=== PATIENT | female | born 1975 | race Caucasian/White ===

== ENCOUNTER 2018-04-08 11:14 | Emergency (ER) | payer BC ==
[2018-04-08 11:14] VITALS: BMI 23.8
[2018-04-08] MEDS ORDERED: Sodium Chloride 0.9% 1,000 ML IV STA (11:43)
[2018-04-08 12:22] LABS: BASO # 0.02 K/mm3 (0.0-2.0); BASO % 0.2 % (0.0-3.0); EOS % 0.5 % (1.5-5.0); GRAN # 5.54 (1.4-6.5); GRAN % 65.8 % (50.0-68.0); HEMOGLOBIN 12.8 g/dL (12.0-16.0); LYMPH # 2.2 (1.2-3.4); LYMPH % 26.4 % (22.0-35.0); MEAN CELL VOLUME 89.3 fl (80.0-105.0); MEAN CORPUSCULAR HEMOGLOBIN 29.8 pg (25.0-35.0); MEAN CORPUSCULAR HGB CONC 33.4 g/dl (31.0-37.0); MEAN PLATELET VOLUME 11.6 fl (7.0-11.0); MONO # 0.6 (0.1-0.6); MONO % 7.1 % (1.0-6.0); RBC 4.29 10^6/uL (3.5-6.1); WHITE BLOOD COUNT 8.4 10^3/ul (4.5-11.0)
[2018-04-08 12:30] LABS: PH,URINE 7.5 (4.7-8.0); URINE BILIRUBIN NEGATIVE (NEGATIVE); URINE BLOOD LARGE (NEGATIVE); URINE GLUCOSE (UA) NEGATIVE (NEGATIVE); URINE LEUKOCYTE ESTERASE TRACE Leu/uL (NEGATIVE); URINE PROTEIN 100 mg/dL (<30 mg/dL)
[2018-04-08 12:34] LABS: HCG,QUALITATIVE URINE NEGATIVE (NEGATIVE); INR 1.01 (0.93-1.08); PROTHROMBIN TIME 11.6 SECONDS (9.4-12.5); URINE APPEARANCE BLOODY (CLEAR); URINE COLOR DARK RED (YELLOW)
[2018-04-08 12:35] LABS: ALB/GLOB RATIO 1.5 (1.1-1.8); ALBUMIN 4.3 g/dL (3.0-4.8); ALT/SGPT 27 U/L (7-56); AST/SGOT 21 U/L (14-36); BLOOD UREA NITROGEN 13 mg/dL (7-21); CALCIUM 9.4 mg/dL (8.4-10.5); GFR AFRICAN-AMERICAN > 60; GFR NON-AFRICAN AMERICAN > 60; PARTIAL THROMBOPLASTIN TIME 19.6 Seconds (25.1-36.5)
[2018-04-08 12:36] LABS: URINE BACTERIA MANY (NEG); URINE RBC TNTC /hpf (0-2)
--- NOTE | 2018-04-08 13:16 | ED PDOC ---
Arrival/HPI - General Chief Complaint: Female Genitourinary Time Seen by Provider: 04/08/18 11:42 Historian: Patient - History of Present Illness Narrative History of Present Illness (Text): 04/08/18 11:42 42 year old female, with past medical history of fibriods and ovarian cysts, presents to the Emergency department complaining of continuous vaginal bleeding since 3 weeks. Patient informs her menstrual cycle began early March when she was going through approximately 3 pads per day. However, bleeding continued and progressively became heavier where now she approximately uses 5 pads overnight. Patient informs lower abdominal cramping and generalized fatigue. Patient denies or abnormal vaginal bleeding in the past. Patient denies any fever, chills, nausea, vomiting, diarrhea, chest pain, shortness of breath or any other complaints. Patient presents to the Emergency department for medical evaluation. Time/Duration: > week (3 weeks) Symptom Onset: Gradual Symptom Course: Unchanged Quality: Cramping Activities at Onset: Light Context: Home Past Medical History - Provider Review Nursing Documentation Reviewed: Yes - Travel History Have you recently traveled outside [place] w/in the past 3 mons?: No - Infectious Disease Hx of Infectious Diseases: None - Tetanus Immunization Tetanus Immunization: Up to Date - Past Medical History Past Medical History: No Previous - Gastrointestinal Hx Gastritis: Yes - Psychiatric Hx Depression: No Hx Emotional Abuse: No Hx Physical Abuse: No Hx Substance Use: No - Surgical History Hx Section: Yes (x2) Hx Dilation and Curettage: Yes - Anesthesia Hx Anesthesia: Yes Hx Anesthesia Reactions: No Hx Malignant Hyperthermia: No - Suicidal Assessment Feels Threatened In Home Enviroment: No Family/Social History - Physician Review Nursing Documentation Reviewed: Yes Family/Social History: No Known Family HX Smoking Status: Never Smoked Hx Alcohol Use: No Hx Substance Use: No Hx Substance Use Treatment: No Allergies/Home Meds Allergies/Adverse Reactions: Allergies No Known Allergies Allergy (Verified 07/14/15 08:59) Home Medications: Home Meds Medication Instructions Recorded Confirmed No Known Home Med 04/08/18 04/08/18 Review of Systems - Physician Review All systems were reviewed & negative as marked: Yes - Review of Systems Constitutional: Fatigue. absent: Fevers Respiratory: Normal. absent: SOB, Cough Cardiovascular: Normal. absent: Chest Pain, Palpitations, Syncope Gastrointestinal: Abdominal Pain (lower abdominal cramping). absent: Constipation, Diarrhea, Nausea, Vomiting, Appetite Changes Genitourinary Female: Vaginal Bleeding. absent: Dysuria, Frequency, Hematuria Musculoskeletal: Normal. absent: Arthralgias, Back Pain, Neck Pain Skin: absent: Rash, Pruritis Neurological: absent: Headache, Dizziness Psychiatric: absent: Anxiety, Depression Physical Exam Vital Signs Reviewed: Yes Vital Signs Temp Pulse Resp BP Pulse Ox 04/08/18 15:28 98.0 F 69 19 99 04/08/18 14:43 98.0 F 67 20 114/70 100 04/08/18 11:40 98.2 F 84 18 118/84 97 Temperature: Afebrile Blood Pressure: Normal Pulse: Regular Respiratory Rate: Normal Appearance: Positive for: Well-Appearing, Non-Toxic, Comfortable Pain Distress: None Mental Status: Positive for: Alert and Oriented X 3 - Systems Exam Head: Present: Atraumatic Conjunctiva: Present: Normal Mouth: Present: Moist Mucous Membranes Respiratory/Chest: Present: Clear to Auscultation, Good Air Exchange. No: Respiratory Distress, Accessory Muscle Use, Wheezes, Rhonchi, Tachypneic Cardiovascular: Present: Regular Rate and Rhythm, Normal S1, S2. No: Murmurs Abdomen: Present: Tenderness (minimal lower abdominal tenderness). No: Distention, Peritoneal Signs, Rebound, Guarding Genitourinary/Pelvic Exam: Present: Normal External Genitalia, Vaginal Bleeding (minimal bleeding noted), Cervical os Closed, Other (chaparoned by Ashley DYKES). No: Vaginal Discharge, Vaginal Lesions, Adenexal Tenderness, Adenexal Mass, Cervical Motion Tendernes, Odor Upper Extremity: Present: Normal ROM Lower Extremity: Present: Normal ROM. No: Edema Neurological: Present: GCS=15, Speech Normal Skin: Present: Warm, Dry, Normal Color. No: Rashes Psychiatric: Present: Alert, Oriented x 3 Medical Decision Making ED Course and Treatment: 04/08/18 11:42 Impression: 42 year old female presents to the Emergency department for vaginal bleeding since 3 weeks. Plan: -- Labs: wnl -- Urinalysis: + blood, + Leukocytes -- US transvaginal: FINDINGS: UTERUS: Measures 5.2 x 6 x 8.5 cm. Normal in size and appearance. Anterior fibroid 1.8 x 2.8 x 2.8 cm. Posterior fibroid 1.1 x 1.7 x 2 cm. Fundal fibroid to the right of the midline 1.1 x 1.4 x 2.2 cm. ENDOMETRIUM: Measures 5.3 mm in diameter. No ultrasound findings to suggest gestational sac, fluid, debris, mass or polyp or other pathologic process within the endometrium. CERVIX: No cervical abnormality identified. RIGHT OVARY: Measures 4.3 x 5 x 5.7 cm. No solid mass. Normal flow. Simple cyst 5.1 x 4.5 x 5 cm LEFT OVARY: Measures 1.6 x 2.4 x 2.6 cm. No solid mass. Normal flow. FREE FLUID: None OTHER FINDINGS: None. IMPRESSION: Multiple (3) uterine fibroids. Stability with respect to the anterior fibroid compared to the prior study 12/16/2013 Simple cyst right ovary. Similar size simple cyst identified on the prior study. 04/08/18 14:29 pt is non toxic well appearing; no distress. stable vitals. I discussed all results indepth with the patient and Advised follow-up with the grain inspector within the next 2 days. I've advised immediate return if symptoms worsen persist or if new concerning symptoms develop. Advised immediate return if the patient develops chest pain shortness of breath or dizziness or if any other concerning symptoms develop Patient verbalizes understanding of discharge instructions and need for immediate followup. all aspects of this case were discussed the attending of record. Impression: Vaginal bleeding Increase fluids Follow-up with the grain inspector within the next 2 days Follow-up with primary care physician within the next 2 days Return immediately if symptoms worsen persist or if new concerning symptoms develop - Lab Interpretations Lab Results: 04/08/18 11:58 04/08/18 11:58 Lab Results 04/08/18 11:58: Urine Color Dark red, Urine Appearance Bloody, Urine pH 7.5, Ur Specific [place] 1.015, Urine Protein 100 H, Urine Glucose (UA) Negative, Urine Ketones Trace H, Urine Blood Large H, Urine Nitrate Positive H, Urine Bilirubin Negative, Urine Urobilinogen 1.0 H, Ur Leukocyte Esterase Trace H, Urine RBC Tntc, Urine WBC 5 - 10, Ur Epithelial Cells 3 - 4, Urine Bacteria Many, Urine HCG, Qual Negative 04/08/18 11:58: WBC 8.4, RBC 4.29, Hgb 12.8, Hct 38.3, MCV 89.3, MCH 29.8, MCHC 33.4, RDW 14.0, Plt Count 257, MPV 11.6 H, Gran % 65.8, Lymph % (Auto) 26.4, [place] % (Auto) 7.1 H, Eos % (Auto) 0.5 L, Baso % (Auto) 0.2, Gran # 5.54, Lymph # (Auto) 2.2, [place] # (Auto) 0.6, Eos # (Auto) 0.0, Baso # (Auto) 0.02 04/08/18 11:58: Sodium 143, Potassium 4.4, Chloride 104, Carbon Dioxide 25, Anion Gap 18, BUN 13, Creatinine 0.6 L, Est GFR ( Amer) > 60, Est GFR ( Non-Af Amer) > 60, Random Glucose 101, Calcium 9.4, Total Bilirubin 0.3, AST 21 , ALT 27, Alkaline Phosphatase 55, Total Protein 7.2, Albumin 4.3, Globulin 2.9 , Albumin/Globulin Ratio 1.5 04/08/18 11:58: PT 11.6, INR 1.01, APTT 19.6 L - RAD Interpretation Radiology Orders: 04/08/18 11:43 TRANSVAGINAL [US] Stat - Medication Orders Current Medication Orders: Discontinued Medications Sodium Chloride (Sodium Chloride 0.9%) 1,000 mls @ 999 mls/hr IV .Q1H1M STA Stop: 04/08/18 12:43 Last Admin: 04/08/18 12:34 Dose: 999 mls/hr eMAR Start Stop Document 04/08/18 12:34 [email or web address] (Rec: 04/08/18 12:34 [email or web address] [id number]) Intravenous Solution Start Date 04/08/18 Start Time 12:34 End Date 04/08/18 - Scribe Statement The provider has reviewed the documentation as recorded by the [facility] [place]. All medical record entries made by the [facility] were at my direction and personally dictated by me. I have reviewed the chart and agree that the record accurately reflects my personal performance of the history, physical exam, medical decision making, and the department course for this patient. I have also personally directed, reviewed, and agree with the discharge instructions and disposition. Disposition/Present on Arrival - Present on Arrival Any Indicators Present on Arrival: No History of DVT/PE: No History of Uncontrolled Diabetes: No Urinary Catheter: No History of Decub. Ulcer: No History Surgical Site Infection Following: None - Disposition Have Diagnosis and Disposition been Completed?: Yes Diagnosis: Cyst of ovary, Uterine leiomyoma, Vaginal bleeding Disposition: HOME/ ROUTINE Disposition Time: 14:15 Patient Plan: Discharge Condition: GOOD Discharge Instructions (ExitCare): Ovarian Cysts, Uterine Fibroids Additional Instructions: Increase fluids Follow-up with the grain inspector within the next 2 days Follow-up with primary care physician within the next 2 days Return immediately if symptoms worsen persist or if new concerning symptoms develop Referrals: Denise De MD [Medical Doctor] - Follow up with primary Sohan Gaytan DO [Staff Provider] - Follow up with primary Forms: [facility] ([place]), WORK NOTE
--- NOTE | 2018-04-08 14:00 | US ---
HISTORY: Pain. Intermittent passage of clots and bleeding since 03/20/2018. Bold Menstrual status: LMP 03/20/2018.. COMPARISON: 12/16/2013 1 TECHNIQUE: Transvaginal only. Real -time technique with 2D, duplex and color Doppler FINDINGS: UTERUS: Measures 5.2 x 6 x 8.5 cm. Normal in size and appearance. Anterior fibroid 1.8 x 2.8 x 2.8 cm. Posterior fibroid 1.1 x 1.7 x 2 cm. Fundal fibroid to the right of the midline 1.1 x 1.4 x 2.2 cm. ENDOMETRIUM: Measures 5.3 mm in diameter. No ultrasound findings to suggest gestational sac, fluid, debris, mass or polyp or other pathologic process within the endometrium. CERVIX: No cervical abnormality identified. RIGHT OVARY: Measures 4.3 x 5 x 5.7 cm. No solid mass. Normal flow. Simple cyst 5.1 x 4.5 x 5 cm LEFT OVARY: Measures 1.6 x 2.4 x 2.6 cm. No solid mass. Normal flow. FREE FLUID: None OTHER FINDINGS: None. IMPRESSION: Multiple (3) uterine fibroids. Stability with respect to the anterior fibroid compared to the prior study 12/16/2013 Simple cyst right ovary. Similar size simple cyst identified on the prior study.
[2018-04-08 14:44] VITALS: BP 114/70; TEMP 98
[2018-04-08 15:29] VITALS: PULSE 69; RESP 19; O2SAT 99
== END 2018-04-08 15:29 | disposition home or self-care (01) ==
LOC: ED 11:14
DX: N83.291 Other ovarian cyst, right side (principal); D25.9 Leiomyoma of uterus, unspecified; N93.9 Abnormal uterine and vaginal bleeding, unspecified
CPT/HCPCS: 76830; 80053; 81001; 84703; 85025; 85610; 85730; 87086; 99283; J7040